=== PATIENT | male | born 1955 | race Caucasian/White ===

== ENCOUNTER 2020-07-19 10:03 | Emergency (ER) | payer BC | END 2020-07-19 10:58 | disposition home or self-care (01) | LOC: JVIRT 10:03 | DX: Z11.52 Encounter for screening for COVID-19 (principal) | CPT/HCPCS: C9803; G2012-GT; U0003 ==

== ENCOUNTER 2020-09-06 11:40 | Emergency (ER) | payer BC | END 2020-09-06 12:39 | disposition home or self-care (01) | LOC: JVIRT 11:40 | DX: Z20.822 Contact with and (suspected) exposure to COVID-19 (principal) | CPT/HCPCS: C9803; G2251-GT; U0003 ==